=== PATIENT | male | born 1970 | race Caucasian/White ===

== ENCOUNTER 2017-06-27 12:17 | Emergency (ER) | payer OTHER ==
[2017-06-27 14:40] VITALS: BP 120/64
== END 2017-06-27 14:40 | disposition home or self-care (01) ==
LOC: ED 12:17
DX: L50.0 Allergic urticaria (principal); E78.00 Pure hypercholesterolemia, unspecified; E66.9 Obesity, unspecified; G89.29 Other chronic pain

== ENCOUNTER 2019-04-06 04:13 | Emergency (ER) | payer OTHER ==
[~2019-04-06] VITALS: Ht 188 cm; Wt 114.8 kg
[2019-04-06 04:32] VITALS: Ht 188 cm; Wt 114.8 kg
[2019-04-06 05:30] VITALS: BP 135/80
== END 2019-04-06 05:25 | disposition home or self-care (01) ==
LOC: ED 04:13
DX: K64.4 Residual hemorrhoidal skin tags (principal); E78.00 Pure hypercholesterolemia, unspecified; G89.29 Other chronic pain; Z90.89 Acquired absence of other organs

== ENCOUNTER 2019-04-18 01:57 | Emergency (ER) | payer OTHER ==
[~2019-04-18] VITALS: Ht 188 cm; Wt 117.9 kg
[2019-04-18 02:09] VITALS: Ht 188 cm; Wt 117.9 kg
[2019-04-18 04:08] LABS: BASOPHIL % 0.7 % (0-2); PLATELET COUNT 275 x10^3mcL (130-400); RED CELL DISTRIBUTION WIDTH 12.3 % (11.5-14.5)
[2019-04-18 04:16] LABS: CALCIUM 8.3 mg/dL (8.5-10.1); CARBON DIOXIDE 31.7 mmol/L (21-32); CHLORIDE SERUM 106 mmol/L (98-107); GFR1 > 60 mL/min; GLUCOSE SERUM 103 mg/dL (74-106); POTASSIUM SERUM 3.6 mmol/L (3.5-5.1); SODIUM SERUM 143 mmol/L (136-145)
[2019-04-18 04:20] LABS: ALKALINE PHOSPHATASE 74 U/L (46-116); ALT/SGPT 18 U/L (16-63); AST/SGOT 20 U/L (15-37); BILIRUBIN TOTAL 0.3 mg/dL (0.20-1.00); LIPASE 190 IU/L (73-393); TOTAL PROTEIN, SERUM 6.5 g/dL (6.4-8.2)
[2019-04-18 04:21] LABS: ALBUMIN 3.3 g/dL (3.4-5.0)
[2019-04-18 06:05] VITALS: BP 109/75
== END 2019-04-18 06:24 | disposition home or self-care (01) ==
LOC: ED 01:57
PROVIDERS: Emergency Medicine
DX: R07.89 Other chest pain (principal); R06.02 Shortness of breath; R05 Cough
CPT/HCPCS: 36415; 85378; Q0092

== ENCOUNTER 2020-05-03 17:17 | Emergency (ER) | payer OTHER ==
[~2020-05-03] VITALS: Ht 188 cm; Wt 117.9 kg
[2020-05-03 17:29] VITALS: Ht 188 cm; Wt 117.9 kg
[2020-05-03 18:01] LABS: BASOPHIL % 0.5 % (0-2); PLATELET COUNT 285 x10^3mcL (130-400)
[2020-05-03 18:43] LABS: CALCIUM 8.8 mg/dL (8.5-10.1); CHLORIDE SERUM 104 mmol/L (98-107); CREATININE SERUM 1.1 mg/dL (0.7-1.3); GFR1 > 60 mL/min; GLUCOSE SERUM 111 mg/dL (74-106); POTASSIUM SERUM 3.9 mmol/L (3.5-5.1); SODIUM SERUM 140 mmol/L (136-145)
[2020-05-03 18:47] LABS: ALBUMIN 3.6 g/dL (3.4-5.0); ALKALINE PHOSPHATASE 67 U/L (46-116); ALT/SGPT 23 U/L (16-63); AST/SGOT 24 U/L (15-37); BILIRUBIN TOTAL 0.3 mg/dL (0.20-1.00); LIPASE 130 IU/L (73-393)
[2020-05-03 20:02] VITALS: BP 127/89
== END 2020-05-03 20:02 | disposition home or self-care (01) ==
LOC: ED 17:17
PROVIDERS: Emergency Medicine
DX: K57.92 Diverticulitis of intestine, part unspecified, without perforation or abscess without bleeding (principal); K40.90 Unilateral inguinal hernia, without obstruction or gangrene, not specified as recurrent; E78.00 Pure hypercholesterolemia, unspecified; Z90.89 Acquired absence of other organs